=== PATIENT | male | born 1955 | race Caucasian/White ===

== ENCOUNTER 2017-02-24 14:16 | Outpatient (CLI) | payer BC ==
--- NOTE | 2017-02-24 15:53 | MRI ---
LUMBAR SPINE MRI WITHOUT CONTRAST 02/24/17 COMPARISON: None. HISTORY: Low back pain radiating to the right hip, lumbar radiculopathy. TECHNIQUE: Multiplanar and multisequence MRI imaging of the lumbar spine is provided without contrast. FINDINGS: The sagittal STIR imaging demonstrates no focal area of osseous marrow edema. There is no significant anterolisthesis or retrolisthesis present within the lumbar spine. Assuming five lumbar type vertebral bodies, the conus medullaris terminates at the T12-L1 level. T12-L1: Intervertebral disc height and signal intensity is within normal limits. No significant centr al canal or neural foraminal stenosis. L1-2: Mild bilateral facet hypertrophy. There is disc space narrowing, disc desiccation, and anterior osteophyte formation and disc bulge. There is a small left foraminal disc protrusion. No significant central canal or neural foraminal stenosis. L2-3: Moderate bilateral facet hypertrophy. There is disc space narrowing, disc desiccation, and mild disc bulge with no significant central canal stenosis. There is a small foraminal disc protrusion on the left. No evidence for neural foraminal stenosis on either side. L3-4: There is disc space narrowing and disc desiccation and mild disc bulge. There is mild bilateral facet hypertrophy. No significant central canal or neural foraminal stenosis noted. L4-5: Disc space narrowing and disc desiccation and mild disc bulge. Mild bilateral facet hypertrophy . Mild right neural foraminal stenosis. No significant central canal or left neural foraminal stenosi s. L5-S1: There is disc space narrowing, disc desiccation and mild disc bulge with no central canal sten osis. There is prominent facet hypertrophy on the right with encroachment on the right neural foramen and severe right neural foraminal stenosis. There is mild left neural foraminal stenosis on the basi s of mild left facet hypertrophy. The imaged retroperitoneal structures are grossly unremarkable. IMPRESSION: Degenerative disc disease and facet hypertrophy change as above, most prominent on the right at the L 5-S1 level. POS: TARAH
== END 2017-02-24 14:17 | disposition home or self-care (01) ==
LOC: TBSIIMAG 14:16
PROVIDERS: ATTEND Neurological Surgery
DX: M51.17 Intervertebral disc disorders with radiculopathy, lumbosacral region (principal); M47.27 Other spondylosis with radiculopathy, lumbosacral region
CPT/HCPCS: 72148

== ENCOUNTER 2019-05-16 14:52 | Outpatient (CLI) | payer BC ==
--- NOTE | 2019-05-16 16:35 | RAD ---
EXAM: XR Sacrum and Coccyx STANDARD PROVIDED CLINICAL HISTORY: Coccygeal pain. COMPARISON: None FINDINGS: Degenerative changes are seen in the lower lumbar spine. No fracture is seen involving the sacrum or coccyx. Mild degenerative changes are seen are seen at the pubic symphysis. Calcifications overlie the pelvis likely representing phleboliths. IMPRESSION: No acute osseous abnormality.
== END 2019-05-16 14:53 | disposition home or self-care (01) ==
LOC: BICRAD 14:52
PROVIDERS: ATTEND Family Medicine
DX: M53.3 Sacrococcygeal disorders, not elsewhere classified (principal)
CPT/HCPCS: 72220

== ENCOUNTER 2019-06-20 07:45 | Observation (INO) | payer BC ==
[2019-06-20 08:10] LABS: #Basophils 0.1 thou/uL (0.0-0.2); #Eosinphils 0.1 thou/uL (0.0-0.7); #Monocytes 0.5 thou/uL (0.11-0.59); #Neutrophils 3.3 thou/uL (1.40-6.50); %Basophils 0.9 % (0.0-1.0); %Eosinophils 1.2 % (0.0-10.0); %Monocytes 8.9 % (0.0-10.0); Hemoglobin 14.1 g/dL (14.0-18.0); Mean Corpuscular HGB CONC 35.3 g/dL (32.0-36.0); Mean Corpuscular Hemoglobin 29.6 pg (27.0-31.0); Mean Corpuscular Volume 83.8 fL (78.0-98.0); Mean Platelet Volume 7.6 fL (7.4-10.4); Platelet Count 199 thou/uL (130-400); RBC Distribution Width 12.8 % (11.5-14.5); Red Blood Cell (RBC) Count 4.76 mill/uL (4.70-6.10); White Blood Cell (WBC) Count 5.9 thou/uL (4.8-10.8)
[2019-06-20 08:18] LABS: INR-International Normal Ratio 0.9; PTT 27.8 SEC (22.9-36.1); Prothrombin Time 12.2 SEC (12.0-14.7)
[2019-06-20 08:35] LABS: ALT (SGPT) 27 U/L (8-55); AST (SGOT) 15 U/L (5-34); Alkaline Phosphatase 58 U/L (40-110); Anion Gap 12 mmol/L (10-20); BUN (Urea Nitrogen) 31 mg/dL (8.4-25.7); Bilirubin, Total 0.5 mg/dL (0.2-1.2); Calc. Creatinine Clearance 0 mL/min (70-130); Carbon Dioxide 23 mmol/L (23-31); Chloride 107 mmol/L (98-107); Estimated GFR-MDRD 48; Globulin 2.6 g/dL (2.4-3.5); Glucose 118 mg/dL (80-115); Potassium 4.5 mmol/L (3.5-5.1); Protein, Total 6.6 g/dL (5.8-8.1); Sodium 137 mmol/L (136-145)
--- NOTE | 2019-06-20 10:29 | CT ---
CT ABDOMEN AND PELVIS WITH IV CONTRAST: HISTORY: Rectal bleeding. FINDINGS: The lung bases are clear. A small hiatal hernia is present. The liver, pancreas, and adrenal glands are normal. No calcified gallstones are seen. The spleen measures 14 cm in AP dimension. There is a tiny calculus in either kidney measuring up to 3 mm. A renal mass is seen. No hydroureteral neph rosis noted. No calculi are seen in the ureters or the urinary bladder. No free air, free fluid, or lymphadenopathy is noted in the abdomen or pelvis. The appendix is rc l. No aneurysmal dilatation of the abdominal aorta is seen. There are degenerative changes in the s pine. There are a few scattered colonic diverticula. IMPRESSION: 1. No acute process. 2. Small hiatal hernia. 3. Mild splenomegaly. 4. Tiny non-obstructing bilateral renal calculi. 5. Mild colonic diverticulosis. POS: TPC
[2019-06-20] MEDS ORDERED: Pantoprazole 40 MG VIAL ONE (11:05)
[2019-06-20] MEDS ORDERED: Pantoprazole 40 MG VIAL IVP SCH (12:00)
[2019-06-20] MEDS ORDERED: Sodium Chloride 0.9% (PF) 10 ML VIAL FS PRN (12:16)
[2019-06-20 13:34] VITALS: BMI 34.2
[2019-06-20 13:45] LABS: Hemoglobin 13.3 g/dL (14.0-18.0)
[2019-06-20] MEDS: Sodium Chloride 0.9% 1,000 ML IV SCH ×2 (13:50→21:14)
[2019-06-20] MEDS ORDERED: GoLYTELY 4,000 ml Bottle PO SCH (14:15)
[2019-06-20] MEDS ORDERED: Iopamidol-370 76% 500 ML 1 ML ONE (14:29)
--- NOTE | 2019-06-20 18:08 | CON ---
DATE OF CONSULTATION: REASON FOR CONSULT: Rectal bleeding. HISTORY OF PRESENT ILLNESS: Mr. Castle is a pleasant 64-year-old gentleman, who this morning got up, who was going to make some coffee, actually felt like he had an accident in his underwear. He really had no urgency or cramping, but his bottom and the doors felt wet. He went to the bathroom. There was some bright red blood in the underwear that he had passed some bowel movement, which was watery like diarrhea. However, he looked in the bowl, it was pretty bright red. He has had no urge to go to the bathroom. There is no pain associated with this. He had no recurrence, but with the amount, he decided to come to the emergency room here. He had a stable hemoglobin, stable vital signs. They did a CAT scan on him in the emergency room showed some mild splenomegaly, nonobstructive renal calculi, and some colonic diverticulosis. He has had no further bleeding since admission. Recently, he states he had some tailbone pain. He saw Dr. Villa, who was sent to Dr. Boateng and they did some injections to that, also that usually when he is sitting. Also, he has had some little bit change in his bowels with more gas and bloating and he went on a and that improved as well. His most recent colonoscopy was in April 2016, at which time, he had hyperplastic polyps removed fragments of tubular adenoma in the descending colon and also a tubular adenoma polyp in the rectum. PAST MEDICAL HISTORY: Polyps, mild hypertension, and osteoarthritis. PAST SURGICAL HISTORY: Hand surgery and wrist surgery. He is supposed to have some knee replacement soon, but has not done that yet. SOCIAL HISTORY: Drinks occasionally, but not daily. ALLERGIES: NONE KNOWN. MEDICATIONS: Lisinopril 20 mg daily. Medications here: 1. Protonix 40 IV q.12. 2. Normal saline 100. He is n.p.o. REVIEW OF SYSTEMS: Negative for nausea, NSAID use, dysphagia, odynophagia, melena, hematochezia, hematemesis, dyspnea, or shortness of breath. He has had . He has had no bowel since he has arrived here. PHYSICAL EXAMINATION: VITAL SIGNS: Temperature 97, pulse 65, and blood pressure 136/73. HEENT: Conjunctivae and sclerae are clear. Mucous membranes are pink and moist. NECK: Supple. LUNGS: Clear. HEART: Regular rate and rhythm. ABDOMEN: Soft and nontender with no palpable hepatosplenomegaly. EXTREMITIES: No clubbing, cyanosis, or edema. RECTAL: Reveals no evidence of perirectal or perianal lesions. Digital exam reveals some internal hemorrhoids. Posteriorly in the rectum, I feel like there is a mass at the tip of my finger, whether that is a polyp or a distinct mass, it is hard to tell. There is some dark blood on the examining glove as well. LABORATORY STUDIES: Hemoglobin 13.3, it was 14.1 at 7 a.m. White count 7.9 and platelet count 199. INR 0.9. Sodium 137, potassium 4.5, and BUN and creatinine 31 and 1.45. Liver function tests normal. ASSESSMENT: 1. Rectal bleeding. This could be diverticular or rectal, could be rectal outlet. There is a possibly of mass or polyp in the rectum. I feel posteriorly at the tip of my finger and I cannot really get a good exam on that. Those are all possibilities. It does not seem he is having overt hemorrhaging, but this does seem to be a lower gastrointestinal bleed. 2. Prior history of polyps. Last examination was in April 2016. Path report reviewed. I have not been able to review endoscopy report, I will do so later today. PLAN: I would go ahead with the abnormal digital rectal exam findings, there is a plan for colonoscopy tomorrow. He understands this. We will continue IV fluids and start liquid diet. N.P.O. after midnight with plans for colonoscopy tomorrow morning. Job ID: [id number]
--- NOTE | 2019-06-20 18:34 | HP ---
CHIEF COMPLAINT: Rectal bleeding. HISTORY OF PRESENT ILLNESS: Mr. Castle is a 64-year-old male with past medical history of hypertension, presents to the emergency room with rectal bleeding that started this morning. The patient denies abdominal pain, nausea, vomiting, fever, or chills. Denies dizziness. The patient states that he had a colonoscopy about 2 years ago. Workup in the emergency room including CT of the abdomen showed mild colonic diverticulosis. No acute process. LABORATORY DATA: The patient has a BUN of 31 and creatinine 1.48. Hemoglobin 14.1. The patient is being admitted to hospital for further management. PAST MEDICAL HISTORY: Hypertension. PAST SURGICAL HISTORY: 1. Wrist surgery. 2. Knee surgery. SOCIAL HISTORY: The patient drinks socially. No smoking history. FAMILY HISTORY: Reviewed and noncontributory. HOME MEDICATIONS: Please see home medication reconciliation form for updated medications. ALLERGIES: NO KNOWN ALLERGIES. REVIEW OF SYSTEMS: Review of 14 systems negative except what is mentioned in history of present illness. PHYSICAL EXAMINATION: GENERAL: The patient is awake, alert, does not appear to be in acute distress. VITAL SIGNS: Blood pressure 127/67, pulse is 63, respiratory rate is 18, temperature 97.9. HEAD AND NECK: Normocephalic and atraumatic. NECK: Supple. No JVD. CHEST: Fair bilateral air entry. HEART: S1 and S2, regular. ABDOMEN: Soft, nontender. Bowel sounds present. NEUROLOGIC: Awake, alert, oriented x3. PSYCH: Normal mood. EXTREMITIES: No clubbing or cyanosis. RECTAL: Done by the ED, please refer to ED note. GENITOURINARY: No suprapubic tenderness. No flank tenderness. DIAGNOSTIC AND LABORATORY DATA: Labs as mentioned above in history of present illness. CT of the abdomen and pelvis as mentioned above in history of present illness. ASSESSMENT: 1. Acute gastrointestinal bleeding, lower. 2. Diverticulosis. 3. Hypertension. PLAN: 1. Admit. 2. Keep n.p.o. for now. 3. IV fluids. 4. Monitor hemoglobin and hematocrit. 5. Consult GI for evaluation for further recommendations. 6. Reconcile home medications. 7. DVT prophylaxis as appropriate. 8. Expected length of stay at least 1 midnight if patient is stable. Job ID: [id number]
[2019-06-20] MEDS: Pantoprazole 40 MG VIAL IVP SCH (20:53)
[2019-06-21] MEDS: Sodium Chloride 0.9% 1,000 ML IV SCH (03:49)
[2019-06-21 06:05] LABS: Hemoglobin 12.5 g/dL (14.0-18.0)
[2019-06-21 06:08] LABS: #Eosinphils 0.1 thou/uL (0.0-0.7); #Lymphocytes 1.5 thou/uL (1.20-3.40); #Monocytes 0.6 thou/uL (0.11-0.59); %Basophils 0.4 % (0.0-1.0); %Eosinophils 1.5 % (0.0-10.0); %Lymphocytes 29.5 % (21.0-51.0); %Monocytes 11.2 % (0.0-10.0); %Neutrophils 57.4 % (42.0-75.0); Hemoglobin 12.5 g/dL (14.0-18.0); Mean Corpuscular HGB CONC 33.9 g/dL (32.0-36.0); Mean Corpuscular Hemoglobin 28.5 pg (27.0-31.0); Mean Corpuscular Volume 84.1 fL (78.0-98.0); Mean Platelet Volume 7.8 fL (7.4-10.4); Platelet Count 174 thou/uL (130-400); RBC Distribution Width 12.8 % (11.5-14.5); Red Blood Cell (RBC) Count 4.38 mill/uL (4.70-6.10); White Blood Cell (WBC) Count 5.2 thou/uL (4.8-10.8)
[2019-06-21] MEDS: Pantoprazole 40 MG VIAL IVP SCH (08:45)
[2019-06-21] MEDS ORDERED: Lidocaine 1% PF 5 ML VIAL ONE (09:55)
[2019-06-21] MEDS ORDERED: PROPOFOL 200 MG/20 ML VIAL ONE (09:55)
[2019-06-21] MEDS ORDERED: Iopamidol-370 76% 500 ML 1 ML ONE (15:28)
--- NOTE | 2019-06-21 15:49 | PDOC.HOSPP ---
- Subjective Encounter Date: 06/21/19 Encounter Time: 12:00 Subjective: Patient seen and examined. No new complaints. No overnight events - Objective Vital Signs & Weight: Vital Signs (12 hours) Temp Pulse Resp BP Pulse Ox 06/21/19 04:39 98.2 F 68 20 118/66 96 Weight Weight 245 lb 11.2 oz I&O: 06/20/19 06/21/19 06/22/19 06:59 06:59 06:59 Intake Total 7210 Balance 7210 Result Diagrams: 06/21/19 05:51 06/20/19 07:58 Radiology Reviewed by me: Yes Hospitalist ROS - Review of Systems ENT: denies: ear pain, ear discharge, nose pain, nose discharge, nose congestion , mouth pain, mouth swelling, throat pain, throat swelling, other Respiratory: denies: cough, dry, shortness of breath, hemoptysis, SOB with excertion, pleuritic pain, sputum, wheezing, other Cardiovascular: denies: chest pain, palpitations, orthopnea, paroxysmal noc. dyspnea, edema, light headedness, other Gastrointestinal: denies: nausea, vomiting, abdominal pain, diarrhea, constipation, melena, hematochezia, other Genitourinary: denies: dysuria, frequency, incontinence, hematuria, retention, other Musculoskeletal: denies: neck pain, shoulder pain, arm pain, back pain, hand pain, leg pain, foot pain, other - Medication Medications: Active Medications Generic Name Dose Route Start Last Admin Trade Name Freq PRN Reason Stop Dose Admin Sodium Chloride 1,000 mls @ 100 mls/hr 06/20/19 12:00 06/21/19 03:49 Normal Saline 0.9% IV 1,000 mls .Q10H NAN Administration - Exam General Appearance: NAD, awake alert Eye: PERRL, anicteric sclera ENT: normocephalic atraumatic, no oropharyngeal lesions Neck: supple, symmetric, no JVD, no thyromegaly Heart: RRR, no murmur, no gallops Respiratory: CTAB, no wheezes, no rales, no ronchi Gastrointestinal: soft, non-tender, non-distended, normal bowel sounds Extremities: no cyanosis, no clubbing, no edema Skin: normal turgor, no lesions Neurological: no focal deficits Musculoskeletal: normal tone, normal strength, no muscle wasting Psychiatric: normal affect, normal behavior Hosp A/P (1) Rectal bleed Code(s): K62.5 - HEMORRHAGE OF ANUS AND RECTUM Status: Acute (2) Rectal mass Code(s): K62.89 - OTHER SPECIFIED DISEASES OF ANUS AND RECTUM Status: Acute (3) Anemia Code(s): D64.9 - ANEMIA, UNSPECIFIED Status: Acute (4) Hypertension Code(s): I10 - ESSENTIAL (PRIMARY) HYPERTENSION Status: Chronic (5) Dyslipidemia Code(s): E78.5 - HYPERLIPIDEMIA, UNSPECIFIED Status: Chronic (6) Obesity (BMI 30.0-34.9) Code(s): E66.9 - OBESITY, UNSPECIFIED Status: Chronic - Plan old records reviewed/req, plan discussed w/ family pt will need CT chest abdomen and pelvis for evaluation will need consultation with oncology and general surgery before discharge will repeat labs tomorrow will consider discharge tomorrow after above
--- NOTE | 2019-06-21 15:52 | OP ---
DATE OF PROCEDURE: 06/21/2019 PROCEDURE PERFORMED: Colonoscopy with biopsy. PREOPERATIVE DIAGNOSES: Hematochezia and abnormal digital rectal exam. DESCRIPTION OF PROCEDURE: Informed consent was obtained from the patient. He was sedated with total intravenous anesthesia. The rectal exam was performed and revealed a mass on the posterior right rectal wall. The colonoscope was advanced to the cecum without difficulty. The ileocecal valve and appendiceal orifice were clearly identified. The preparation quality was good. There was moderate diverticulosis in the sigmoid colon. There was a 5 cm mass in the distal rectum. This was ulcerated. Multiple biopsies were obtained. The mass was about a centimeter above the dentate line. The remainder of the colonoscopy including retroflexed views was negative. IMPRESSION: 1. 5 cm ulcerated mass in the distal rectum close to the anal verge about a centimeter or so above the dentate line. 2. Moderate diverticulosis of the sigmoid colon. 3. Otherwise, normal colonoscopy. RECOMMENDATIONS: 1. Await histopathology. 2. Check CEA level and CT scan of the chest, abdomen, and pelvis. Job ID: [id number]
--- NOTE | 2019-06-21 17:27 | CT ---
CT Chest Abd Pelvis W Con History: Rectal mass Comparison: CT yesterday Findings: Mild bronchiectasis in the right lower lobe of the scar. No pneumothorax. No effusion. No s uspicious pulmonary nodule. No pericardial fluid. The liver is without suspicious mass. There is a 2 small to characterize hypodensity within hepatic s egment 4A which measures 5 mm likely a cyst. Spleen mildly enlarged. The portal vein is also mildly enlarged. The aortoiliac contour is nonaneurysmal. The known rectal mass is not well seen on this examination. No free intraperitoneal gas or fluid. Mild diverticular disease sigmoid colon without active current inflammation. No retroperitoneal periaortic adenopathy. No iliac adenopathy. High-grade facet arthrosis on the right at L5/S1. No suspicious osteolytic or osteoblastic lesions. Impression: 1. No evidence for metastatic disease. 2. The known rectal mass is not well delineated on today's exam. 3. Mild splenomegaly and dilated main portal vein can be seen with portal hypertension. 4. Nonobstructive left renal calculi, punctate.
[2019-06-22 07:37] VITALS: TEMP 98.8
--- NOTE | 2019-06-22 08:10 | PRG ---
DATE OF SERVICE: 06/22/2019 SUBJECTIVE: Mr. Castle has no complaints today. No rectal pain. No blood in the stool. OBJECTIVE: ABDOMEN: Soft, nontender, nondistended. Bowel sounds are present. IMPRESSION: Ulcerated rectal mass, close to the anal verge. We will wait await biopsies to confirm that this is a cancer. CT scan shows no evidence of metastatic disease. RECOMMENDATIONS: 1. He can discharge home this morning. 2. I will refer him back to follow up with Dr. Rudd whom he has seen as an outpatient. 3. He will see Radiation/Oncology after that and then further discussion with Surgery. There will be no need for inpatient consultation with Oncology or Surgery at this point as the location of this tumor will prevent any options for immediate surgery. Job ID: [id number]
[2019-06-22] MEDS: Lisinopril 20 MG TAB PO SCH ×2 (08:17→08:20)
[2019-06-22 08:18] VITALS: BP 132/67
[2019-06-22] MEDS ORDERED: Fish Oil 1,000 MG CAP PO SCH (09:00)
[2019-06-22] MEDS ORDERED: Multivit, Therapeutic 1 TAB PO SCH (09:00)
--- NOTE | 2019-06-22 11:40 | DIS ---
DATE OF ADMISSION: 06/20/2019 DATE OF DISCHARGE: 06/22/2019 PRIMARY CARE PHYSICIAN: Dr. Alfonso Blanchard. DISCHARGE DISPOSITION: Home. PRIMARY PROCEDURE/OPERATION: Colonoscopy with biopsy showed 5 cm ulcerated mass in distal rectum, moderate diverticulosis of sigmoid colon. RADIOLOGICAL INVESTIGATION: The patient had abdomen, chest, pelvis CT scan, which showed no evidence of metastatic disease; rectal mass, mild splenomegaly, portal hypertension, nonobstructive left renal calculi. SIGNIFICANT LABORATORY DATA: WBC 5.2, hemoglobin 12.5, platelets 174. INR 0.9. Sodium 137, potassium 4.5, BUN 31, creatinine 1.48, calcium 9.0. LFT normal. Carcinoembryonic antigen 2.90. DISCHARGE MEDICATIONS: 1. Fish oil one capsule daily. 2. Lisinopril 20 mg daily. 3. Melatonin 5 mg p.o. at bedtime. 4. Multivitamin one tablet p.o. daily. CONTRAINDICATION: None. CODE STATUS: Full code. INPATIENT LOAD TEST MECHANIC: Dr. Mcallister, did colonoscopy. Test results pending on discharge. Pathology report from rectal biopsy. DISCHARGE PLAN: Posthospital, the patient will follow up with Dr. Mcallister as instructed, and the patient will make appointment with primary care physician in 1 week, and the patient will follow up with Oncology. HOSPITAL COURSE: A 64-year-old male who was admitted in the hospital by Dr. Bowles. Please see his H and P for further details. The patient was admitted for rectal bleeding. The patient was evaluated by Gastroenterology. The patient underwent colonoscopy. Colonoscopy showed a 5 cm ulcerated mass in distal rectum. Biopsy was obtained, result is pending. Chest, abdomen, and pelvis CT scan was not showing any metastatic lesion. The patient will follow up with Gastroenterology for pathology report and further discussion of treatment as an outpatient basis. The patient is seen and examined at bedside today. PHYSICAL EXAMINATION: VITAL SIGNS: Currently, temperature 98.8, pulse 80, respiratory rate 18, blood pressure 132/67, weight 245 pounds. GENERAL: The patient is currently alert, awake, no acute distress. HEENT: Normocephalic and atraumatic. NECK: Supple. No JVD. No meningeal signs of irritation. LUNGS: Clear to auscultation without any rhonchi or rales. CARDIAC: S1 and S2 regular. No murmur. No gallop. No rub. ABDOMEN: Soft, bowel sounds present, nontender, nondistended. No organomegaly. No mass. EXTREMITIES: No edema. NEUROLOGIC: Nonfocal examination. CONDITION: Overall, the patient is medically stable for discharge today. Job ID: [id number]
== END 2019-06-22 10:55 | disposition home or self-care (01) ==
LOC: ERS 07:45 → T4-B 11:43
PROVIDERS: ADMIT Internal Medicine; ATTEND Internal Medicine
PROC: 0DBP8ZX Excision of Rectum, Via Natural or Artificial Opening Endoscopic, Diagnostic (ICD-10-PCS; principal; 2019-06-21)
DX: C20 Malignant neoplasm of rectum (principal); K57.30 Diverticulosis of large intestine without perforation or abscess without bleeding; I10 Essential (primary) hypertension; M19.90 Unspecified osteoarthritis, unspecified site; Z79.899 Other long term (current) drug therapy; Z98.890 Other specified postprocedural states; Z86.010 Personal history of colon polyps
CPT/HCPCS: 36415; 36416; 71260; 74177; 80053; 82378; 85025; 85610; 85730; 86850; 86900; 86901; 88305; 96361; 96374; 96376; C9113; G0378; J2001; J2704; Q9967

== ENCOUNTER 2019-06-30 08:23 | Outpatient (CLI) | payer BC ==
--- NOTE | 2019-06-30 12:31 | PET ---
Exam: PET SCAN WITH CT ATTENUATION CORRECTION: HISTORY: Rectal mass. Initial scan for treatment planning. Treatment staging. COMPARISON: None. CORRELATION: Chest, abdomen, and pelvic CT dated 06/21/2019. TECHNIQUE: PET scan with CT attenuation correction was performed from the base of brain to the proximal thighs f ollowing the intravenous administration of 10.9 mCi of [id number]. FINDINGS: Head and neck: No abnormal radiotracer localization. Chest: No abnormal radiotracer localization. Abdomen and pelvis: No abnormal radiotracer localization in the abdomen or external to the alimentary canal in the pelvis. CT used for attenuation correction does demonstrate diverticulosis of sigmoid colon. There is uptake in the rectum corresponding to known cancer with maximum SUV of 25.5. Osseous structures: No abnormal FDG localization. IMPRESSION: 1. No PET evidence of metastases. 2. Focal uptake involving the rectum compatible with patient's history of rectal cancer. Transcribed Date/Time: 06/30/2019 12:55 PM
== END 2019-06-30 08:24 | disposition home or self-care (01) ==
LOC: PET 08:23
PROVIDERS: ATTEND Internal Medicine Hematology & Oncology
DX: C19 Malignant neoplasm of rectosigmoid junction (principal); R94.8 Abnormal results of function studies of other organs and systems
CPT/HCPCS: 78815; A9552

== ENCOUNTER 2019-07-04 13:24 | Outpatient (CLI) | payer BC ==
[2019-07-04] MEDS ORDERED: Magnevist 469MG/ML 20 ML VIAL ONE (15:46)
--- NOTE | 2019-07-05 09:49 | MRI ---
MRI PELVIS WITHOUT AND WITH CONTRAST: Date: 07/04/2019 HISTORY: Rectal cancer. Staging exam. COMPARISON: PET/CT dated 06/30/[address] chest/abdomen/pelvis dated 06/21/2019. TECHNIQUE: Multiplanar, multisequence MR images were obtained of the pelvis without and with IV contrast. FINDINGS: There is a mass in the lower aspect of the rectum. This is seen along the right posterior and lateral aspect of the rectum. This mass measures 1.0 cm in thickness and 3.6 cm in length. The mass appears to invade through the muscularis propria into the subserosa less than 1.0 mm beyond the muscularis pr opria. Because this mass is low in the pelvis, this is near the mesorectal fascia and the mass approa ches the mesorectal fascia within 1-2 mm. There is questionable disruption of the fat plane between t he mesorectal fascia and the posterior aspect of the mass. This is best seen on image 13 of 36 on the T2-weighted sequences. This mass is approximately 4.8 cm from the anal verge. No mesorectal fat lymphadenopathy is seen. The prostate and seminal vesicles are intact and not invol meghann the rectal mass. No marrow signal abnormality is present. IMPRESSION: Rectal cancer as above. This appears to be a T3a mass with N0 metastases. This likely is a stage IIA malignancy. POS: HERMES
== END 2019-07-04 13:25 | disposition home or self-care (01) ==
LOC: MRI 13:24
PROVIDERS: ATTEND Internal Medicine Hematology & Oncology
DX: C20 Malignant neoplasm of rectum (principal)
CPT/HCPCS: 72197; A9579

== ENCOUNTER 2019-07-21 14:00 | Emergency (ER) | payer BC ==
[~2019-07-21 14:00] MED LIST: Iopamidol-370 76% 500 ML 1 ML ONE
[2019-07-21 14:46] LABS: #Monocytes 0.5 thou/uL (0.11-0.59); #Neutrophils 3.2 thou/uL (1.40-6.50); %Basophils 0.5 % (0.0-1.0); %Eosinophils 0.5 % (0.0-10.0); %Lymphocytes 20.6 % (21.0-51.0); %Monocytes 10.4 % (0.0-10.0); %Neutrophils 67.9 % (42.0-75.0); Hemoglobin 13.4 g/dL (14.0-18.0); Mean Corpuscular HGB CONC 34.8 g/dL (32.0-36.0); Mean Corpuscular Hemoglobin 28.9 pg (27.0-31.0); Mean Corpuscular Volume 82.8 fL (78.0-98.0); Mean Platelet Volume 7.3 fL (7.4-10.4); Platelet Count 165 thou/uL (130-400); RBC Distribution Width 12.4 % (11.5-14.5); Red Blood Cell (RBC) Count 4.65 mill/uL (4.70-6.10); White Blood Cell (WBC) Count 4.7 thou/uL (4.8-10.8)
--- NOTE | 2019-07-21 14:55 | RAD ---
PORTABLE CHEST ONE VIEW: 07/21/19 at 2:40 p.m. HISTORY: Chest pain. FINDINGS: The heart size is normal. The lungs are expanded without focal areas of consolidation, pneumothoraces or pleural effusions. IMPRESSION: No radiographic evidence of acute cardiopulmonary process. POS: LEAHA
[2019-07-21 15:14] LABS: ALT (SGPT) 23 U/L (8-55); AST (SGOT) 17 U/L (5-34); Albumin 3.9 g/dL (3.4-4.8); Alkaline Phosphatase 54 U/L (40-110); Anion Gap 11 mmol/L (10-20); BUN (Urea Nitrogen) 19 mg/dL (8.4-25.7); Bilirubin, Total 0.5 mg/dL (0.2-1.2); Calc. Creatinine Clearance 0 mL/min (70-130); Calcium 8.8 mg/dL (7.8-10.44); Carbon Dioxide 23 mmol/L (23-31); Chloride 105 mmol/L (98-107); Estimated GFR-MDRD 57; Globulin 2.8 g/dL (2.4-3.5); Glucose 108 mg/dL (80-115); Potassium 4.4 mmol/L (3.5-5.1); Protein, Total 6.7 g/dL (5.8-8.1); Sodium 135 mmol/L (136-145)
--- NOTE | 2019-07-21 17:38 | CT ---
CT ANGIOGRAM CHEST: 07/21/19 COMPARISON: Chest CT 06/21/19. HISTORY: Left sided chest pain, colon cancer. FINDINGS: The spleen is mildly enlarged, measuring 14 cm in AP dimension. Subcentimeter nonobstructing stone present mid pole left kidney. No renal mass or adrenal mass. Pancr eas grossly unremarkable. No pleural, pericardial, or mediastinal fluid. There is a mildly prominent but nonenlarged prevascular node. No lymphadenopathy is evident within the chest. There is adequate opacification of the pulmonary arterial vasculature. No filling defect seen to sugg est the presence of pulmonary arterial embolism. No discrete pulmonary parenchymal mass lesion or nodule noted. There is mild nonspecific bilateral lower lobe ground glass opacity, near when compared to prior CT p erformed 06/21/19. No focal consolidation. Review of the osseous structures demonstrates no worrisome lytic or blastic bone lesion. IMPRESSION: 1. No evidence for acute pulmonary arterial embolism. 2. Mild nonspecific bibasilar ground glass opacity which could signify atypical/viral pneumonit is in the proper clinical setting. 3. Splenomegaly. POS: BRADLEY
== END 2019-07-21 17:55 | disposition home or self-care (01) ==
LOC: ERS 14:00
DX: R07.89 Other chest pain (principal); I10 Essential (primary) hypertension; Z79.899 Other long term (current) drug therapy
CPT/HCPCS: 71045; 71275; 80053; 84484; 85025; 93005; 96360; Q9967

== ENCOUNTER 2025-01-10 10:45 | Outpatient (CLI) | payer MEDICARE, BC | END 2025-01-10 10:46 | disposition home or self-care (01) | LOC: SCSMRI 10:45 | PROVIDERS: ATTEND Family Medicine Sports Medicine | DX: M77.02 Medial epicondylitis, left elbow (principal); S56.212A Strain of other flexor muscle, fascia and tendon at forearm level, left arm, initial encounter; M67.824 Other specified disorders of tendon, left elbow ==